=== PATIENT | male | born 1960 | race Two or more races ===

== ENCOUNTER 2021-08-09 16:58 | Inpatient (IN) | payer OTHER ==
[~2021-08-09] VITALS: Ht 170.2 cm; Wt 69.8 kg
[2021-08-09] MEDS ORDERED: HYDROmorphone HCL 2 MG/ML VL IV ONE (17:30)
[2021-08-09] MEDS ORDERED: SODIUM CHLORIDE 0.9% 1,000 ML IVB ONE (17:30)
[2021-08-09] MEDS ORDERED: ONDANSETRON HCL 4 MG/2 ML VIAL IV ONE (17:30)
[2021-08-09] MEDS ORDERED: IOHEXOL 300 MG/ML 100ML BOTTLE IJ ONE (19:16)
[2021-08-09 19:31] LABS: Albumin 3.4 g/dL (3.4-5.0); Calcium 8.8 mg/dL (8.5-10.1); Magnesium 2.2 mg/dL (1.6-2.6); Potassium 3.7 mmol/L (3.5-5.1)
[2021-08-09 19:35] LABS: BUN/Creatinine Ratio 19.1; Bilirubin, Total 0.8 mg/dL (0.2-1.0); Total Protein 7.2 g/dL (6.4-8.2)
[2021-08-09 23:42] LABS: Urine Bacteria NONE SEEN /hpf (None Seen); Urine Blood TRACE /uL (Negative); Urine WBC <1 /hpf (0 - 3)
[2021-08-09 23:43] LABS: Urine Specific Gravity > 1.050 (1.001-1.035)
[2021-08-09] MEDS ORDERED: LORazepam 2MG/ML-1ML VIAL ONE (23:51)
[2021-08-10] MEDS ORDERED: LORazepam 2MG/ML-1ML VIAL IV ONE
[2021-08-10] MEDS ORDERED: AZITHROMYCIN 250 MG TAB PO ONE (00:15)
[2021-08-10] MEDS ORDERED: cefTRIAXone 1GM/50ML D5W 50 ML IV ONE (00:15)
[2021-08-10] MEDS ORDERED: MORPHINE SULFATE 4 MG/ML SYR/VIAL IV PRN (03:30)
[2021-08-10] MEDS ORDERED: ONDANSETRON HCL 4 MG/2 ML VIAL IV PRN (03:30)
[2021-08-10] MEDS ORDERED: ALBUTEROL SULF 2.5 MG/0.5ML(0.5%) NEB SOLN NEB PRN (03:30)
[2021-08-10] MEDS: SODIUM CHLORIDE 0.9% 1,000 ML IV SCH ×3 (03:45→20:10)
[2021-08-10] MEDS ORDERED: DEXTROSE (50%) 50ML SYRG IV PRN (04:00)
[2021-08-10] MEDS ORDERED: hydrALAZINE HCL 20 MG/ML VL IV PRN (04:00)
[2021-08-10] MEDS ORDERED: IPRATROPIUM BROM 0.5 MG/2.5ML INH SOL NEB PRN (04:00)
[2021-08-10 04:32] VITALS: BP 122/86
[2021-08-10 06:57] VITALS: BP 141/89
[2021-08-10] MEDS: InsuLIN REG 1unit/0.01ml Soln (100units/ml) SC SCH ×4 (07:00→21:51)
[2021-08-10] MEDS: ACCU-CHEK COMFORT CURVE STRIP VI SCH ×4 (07:13→21:51)
[2021-08-10] MEDS ORDERED: HYDR-4902 PO (07:15)
[2021-08-10] MEDS ORDERED: UMEC1INH INH (07:16)
[2021-08-10] MEDS ORDERED: ALBU108A5 IN (07:16)
[2021-08-10] MEDS ORDERED: LISI-716 PO (07:16)
[2021-08-10 07:55] LABS: Basophils # (auto) 0.1 10 ^3/uL (0-0.2); Basophils % (auto) 0.8 % (0.0-2.0); Eosinophils # (auto) 0.1 10 ^3/uL (0-0.8); Eosinophils % (auto) 1.6 % (0.0-7.0); Hematocrit 39.9 % (41.0-53.0); Hemoglobin 13.6 g/dL (13.5-17.5); Lymphocytes # (auto) 1.7 10 ^3/uL (0.4-5.4); Lymphocytes % (auto) 22.6 % (10.0-50.0); Mean Corpuscular Hemoglobin 27.3 pg (28.0-32.0); Mean Corpuscular Volume 80.2 fL (80.0-100.0); Monocytes # (auto) 0.5 10 ^3/uL (0-1.3); Monocytes % (auto) 6.6 % (0.0-12.0); Neutrophils % (auto) 68.4 % (37.0-80.0); Nucleated Red Blood Cells % 0.1 %; Red Blood Cells 4.97 10^6/uL (4.5-5.90); Red Cell Distribution Width 15.3 % (11.8-14.3); White Blood Cell 7.4 10^3/uL (4.4-10.8)
[2021-08-10 08:24] VITALS: BP 132/62
[2021-08-10] MEDS: cefTRIAXone 1GM/50ML D5W 50 ML IV SCH (08:51)
[2021-08-10] MEDS: NICOTINE 14 MG/24HR TOPICAL PATCH TD SCH (08:51)
[2021-08-10] MEDS: FAMOTIDINE 20 MG TAB PO SCH (08:51)
[2021-08-10] MEDS: AZITHROMYCIN 500MG/ 250ML 250 ML IV SCH (10:17)
[2021-08-10 12:00] VITALS: BP 127/86
[2021-08-10 16:13] VITALS: BP 137/95
[2021-08-10] MEDS: ACETAMINOPHEN 325 MG TAB PO PRN (18:22)
[2021-08-10 22:00] VITALS: BP 129/85
[2021-08-11] MEDS: SODIUM CHLORIDE 0.9% 1,000 ML IV SCH ×4 (04:30→22:24)
[2021-08-11 05:00] VITALS: BP 138/91
[2021-08-11] MEDS: InsuLIN REG 1unit/0.01ml Soln (100units/ml) SC SCH ×4 (06:10→22:00)
[2021-08-11] MEDS: ACCU-CHEK COMFORT CURVE STRIP VI SCH ×4 (06:10→22:00)
[2021-08-11 06:28] LABS: Basophils # (auto) 0.1 10 ^3/uL (0-0.2); Basophils % (auto) 0.9 % (0.0-2.0); Eosinophils # (auto) 0.1 10 ^3/uL (0-0.8); Eosinophils % (auto) 1.5 % (0.0-7.0); Hematocrit 39.6 % (41.0-53.0); Hemoglobin 13.9 g/dL (13.5-17.5); Lymphocytes # (auto) 1.6 10 ^3/uL (0.4-5.4); Lymphocytes % (auto) 21.4 % (10.0-50.0); Mean Corpuscular Hemoglobin 27.7 pg (28.0-32.0); Mean Corpuscular Hgb Conc. 35.1 g/dL (32.0-36.0); Mean Corpuscular Volume 78.8 fL (80.0-100.0); Monocytes # (auto) 0.6 10 ^3/uL (0-1.3); Monocytes % (auto) 7.8 % (0.0-12.0); Neutrophils # (auto) 5.2 10 ^3/uL (1.6-8.6); Neutrophils % (auto) 68.4 % (37.0-80.0); Nucleated Red Blood Cells % 0.1 %; Red Blood Cells 5.03 10^6/uL (4.5-5.90); White Blood Cell 7.5 10^3/uL (4.4-10.8)
[2021-08-11 06:35] LABS: Albumin 3.3 g/dL (3.4-5.0); Calcium 8.5 mg/dL (8.5-10.1); Potassium 3.9 mmol/L (3.5-5.1)
[2021-08-11 06:41] LABS: BUN/Creatinine Ratio 12.4; Total Protein 6.8 g/dL (6.4-8.2)
[2021-08-11 09:00] VITALS: BP 131/88
[2021-08-11] MEDS: FAMOTIDINE 20 MG TAB PO SCH (09:16)
[2021-08-11] MEDS: cefTRIAXone 1GM/50ML D5W 50 ML IV SCH (09:16)
[2021-08-11] MEDS: PANTOPRAZOLE 40 MG/10 ML VIAL INJ IV SCH (09:16)
[2021-08-11] MEDS: NICOTINE 14 MG/24HR TOPICAL PATCH TD SCH (09:17)
[2021-08-11] MEDS: AZITHROMYCIN 500MG/ 250ML 250 ML IV SCH (09:56)
[2021-08-11] MEDS ORDERED: VANCOMYCIN PER PHARMACY 0 MG IV SCH (10:00)
[2021-08-11] MEDS ORDERED: VANCOMYCIN 1GM/250ML 250 ML IV ONE (10:00)
[2021-08-11] MEDS: SUCRALFATE 1 GM TAB PO SCH ×3 (11:41→22:00)
[2021-08-11 12:29] VITALS: BP 133/91
[2021-08-11 17:00] VITALS: BP 126/86
[2021-08-11] MEDS: ACETAMINOPHEN 325 MG TAB PO PRN (17:23)
[2021-08-11 22:00] VITALS: BP 142/85
[2021-08-12] MEDS: VANCOMYCIN 1GM/250ML 250 ML IV SCH ×3 (00:21→13:30)
[2021-08-12 05:00] VITALS: BP 138/88
[2021-08-12 05:44] LABS: Basophils # (auto) 0 10 ^3/uL (0-0.2); Basophils % (auto) 0.5 % (0.0-2.0); Eosinophils # (auto) 0.2 10 ^3/uL (0-0.8); Eosinophils % (auto) 1.7 % (0.0-7.0); Hematocrit 39.1 % (41.0-53.0); Hemoglobin 13.7 g/dL (13.5-17.5); Lymphocytes # (auto) 1.6 10 ^3/uL (0.4-5.4); Lymphocytes % (auto) 17.9 % (10.0-50.0); Mean Corpuscular Hemoglobin 27.6 pg (28.0-32.0); Mean Corpuscular Hgb Conc. 35.2 g/dL (32.0-36.0); Mean Corpuscular Volume 78.4 fL (80.0-100.0); Monocytes # (auto) 0.6 10 ^3/uL (0-1.3); Monocytes % (auto) 6.9 % (0.0-12.0); Neutrophils # (auto) 6.4 10 ^3/uL (1.6-8.6); Nucleated Red Blood Cells % 0.1 %; Red Blood Cells 4.98 10^6/uL (4.5-5.90); White Blood Cell 8.8 10^3/uL (4.4-10.8)
[2021-08-12] MEDS: ACCU-CHEK COMFORT CURVE STRIP VI SCH ×4 (07:00→22:00)
[2021-08-12] MEDS: InsuLIN REG 1unit/0.01ml Soln (100units/ml) SC SCH ×4 (07:00→22:00)
[2021-08-12] MEDS: SUCRALFATE 1 GM TAB PO SCH ×4 (07:16→22:00)
[2021-08-12] MEDS: cefTRIAXone 1GM/50ML D5W 50 ML IV SCH (09:00)
[2021-08-12 09:07] VITALS: BP 131/83
[2021-08-12] MEDS: AZITHROMYCIN 500MG/ 250ML 250 ML IV SCH (10:00)
[2021-08-12] MEDS: PANTOPRAZOLE 40 MG/10 ML VIAL INJ IV SCH (10:00)
[2021-08-12] MEDS: NICOTINE 14 MG/24HR TOPICAL PATCH TD SCH (10:00)
[2021-08-12 12:31] VITALS: BP 131/89
[2021-08-12] MEDS: SODIUM CHLORIDE 0.9% 1,000 ML IV SCH ×2 (13:50→22:10)
[2021-08-12 16:37] VITALS: BP 129/77
[2021-08-12 20:44] VITALS: BP 140/86
[2021-08-12 21:27] VITALS: BP 129/77
[2021-08-12] MEDS: VANCOMYCIN HCL 125MG/5ML ORAL SOL PO SCH (22:00)
[2021-08-12] MEDS: ACETAMINOPHEN 325 MG TAB PO PRN (23:44)
[2021-08-13 05:00] VITALS: BP 125/77
[2021-08-13] MEDS: VANCOMYCIN HCL 125MG/5ML ORAL SOL PO SCH ×4 (06:00→22:00)
[2021-08-13] MEDS: SODIUM CHLORIDE 0.9% 1,000 ML IV SCH ×3 (06:30→23:10)
[2021-08-13] MEDS: InsuLIN REG 1unit/0.01ml Soln (100units/ml) SC SCH ×4 (07:00→22:00)
[2021-08-13] MEDS: SUCRALFATE 1 GM TAB PO SCH ×4 (07:00→22:00)
[2021-08-13] MEDS: ACCU-CHEK COMFORT CURVE STRIP VI SCH ×4 (07:23→22:00)
[2021-08-13 09:00] VITALS: BP 110/70
[2021-08-13] MEDS: PANTOPRAZOLE 40 MG/10 ML VIAL INJ IV SCH (09:53)
[2021-08-13] MEDS: cefTRIAXone 1GM/50ML D5W 50 ML IV SCH (09:53)
[2021-08-13] MEDS: NICOTINE 14 MG/24HR TOPICAL PATCH TD SCH (09:55)
[2021-08-13] MEDS: AZITHROMYCIN 500MG/ 250ML 250 ML IV SCH (09:55)
[2021-08-13 12:00] VITALS: BP 121/76
[2021-08-13] MEDS: metroNIDAZOLE 500MG/100ML 100 ML IV SCH ×2 (14:00→22:00)
[2021-08-13 17:00] VITALS: BP 126/80
[2021-08-13 22:00] VITALS: BP 136/101
[2021-08-14 05:00] VITALS: BP 140/101
[2021-08-14] MEDS: VANCOMYCIN HCL 125MG/5ML ORAL SOL PO SCH ×4 (06:00→21:30)
[2021-08-14] MEDS: metroNIDAZOLE 500MG/100ML 100 ML IV SCH ×3 (06:00→21:30)
[2021-08-14] MEDS: ACCU-CHEK COMFORT CURVE STRIP VI SCH ×4 (07:00→21:31)
[2021-08-14] MEDS: InsuLIN REG 1unit/0.01ml Soln (100units/ml) SC SCH ×4 (07:00→21:30)
[2021-08-14] MEDS: SUCRALFATE 1 GM TAB PO SCH ×4 (07:00→21:30)
[2021-08-14] MEDS: SODIUM CHLORIDE 0.9% 1,000 ML IV SCH ×2 (07:30→15:50)
[2021-08-14 08:00] VITALS: BP 147/111
[2021-08-14] MEDS: cefTRIAXone 1GM/50ML D5W 50 ML IV SCH (09:38)
[2021-08-14] MEDS: PANTOPRAZOLE 40 MG/10 ML VIAL INJ IV SCH (09:39)
[2021-08-14] MEDS: AZITHROMYCIN 500MG/ 250ML 250 ML IV SCH (09:40)
[2021-08-14] MEDS: NICOTINE 14 MG/24HR TOPICAL PATCH TD SCH (09:41)
[2021-08-14] MEDS ORDERED: NIC21P TOP (10:50)
[2021-08-14] MEDS ORDERED: METR500T PO (10:50)
[2021-08-14] MEDS ORDERED: SUCR1TAB22 OR (10:50)
[2021-08-14] MEDS ORDERED: VANC125PO PO (10:50)
[2021-08-14] MEDS ORDERED: PANT40T PO (10:50)
[2021-08-14 11:18] VITALS: BP 147/111
[2021-08-14 12:00] VITALS: BP 138/89
[2021-08-14 16:00] VITALS: BP 160/98
[2021-08-14 22:00] VITALS: BP 139/86
[2021-08-15] MEDS: SODIUM CHLORIDE 0.9% 1,000 ML IV SCH ×2 (00:23→08:30)
[2021-08-15 05:00] VITALS: BP 139/79
[2021-08-15] MEDS: VANCOMYCIN HCL 125MG/5ML ORAL SOL PO SCH ×2 (06:33→12:00)
[2021-08-15] MEDS: metroNIDAZOLE 500MG/100ML 100 ML IV SCH ×2 (06:33→14:00)
[2021-08-15] MEDS: SUCRALFATE 1 GM TAB PO SCH ×2 (06:33→11:30)
[2021-08-15] MEDS: ACCU-CHEK COMFORT CURVE STRIP VI SCH ×2 (06:34→11:30)
[2021-08-15] MEDS: InsuLIN REG 1unit/0.01ml Soln (100units/ml) SC SCH ×2 (06:34→11:30)
[2021-08-15 08:00] VITALS: BP 140/85
[2021-08-15] MEDS: cefTRIAXone 1GM/50ML D5W 50 ML IV SCH (09:00)
[2021-08-15] MEDS: PANTOPRAZOLE 40 MG/10 ML VIAL INJ IV SCH (10:00)
[2021-08-15] MEDS: AZITHROMYCIN 500MG/ 250ML 250 ML IV SCH (10:00)
[2021-08-15] MEDS: NICOTINE 14 MG/24HR TOPICAL PATCH TD SCH (10:00)
[2021-08-15 12:00] VITALS: BP 136/92
== END 2021-08-15 13:00 | disposition home or self-care (01) ==
LOC: ER 16:58 → EDBD 16:58 → OVERFLOW 08-10 03:29 → WEST WING 08-10 04:50
PROVIDERS: ADMIT Internal Medicine; ATTEND Family Medicine
DX: K80.20 Calculus of gallbladder without cholecystitis without obstruction (principal); J18.9 Pneumonia, unspecified organism; A04.72 Enterocolitis due to Clostridium difficile, not specified as recurrent; J44.0 Chronic obstructive pulmonary disease with (acute) lower respiratory infection; K29.70 Gastritis, unspecified, without bleeding; I10 Essential (primary) hypertension; E11.9 Type 2 diabetes mellitus without complications; K52.89 Other specified noninfective gastroenteritis and colitis; R09.02 Hypoxemia; K43.9 Ventral hernia without obstruction or gangrene; Z20.822 Contact with and (suspected) exposure to COVID-19; F12.10 Cannabis abuse, uncomplicated; F20.9 Schizophrenia, unspecified; Z87.891 Personal history of nicotine dependence; Z71.6 Tobacco abuse counseling
CPT/HCPCS: 36415; 36600; 71045; 74177; 76705; 78226; 80053; 81001; 82270; 82565; 82805; 82962; 83605; 83690; 83735; 85025; 85048; 86738; 87040; 87045; 87077; 87186; 87278; 87426; 87427; 87493; 93005; 94640; 96361; 96365; 96375; C9113; G0378; J0696; J1815; J2405; J3490